=== PATIENT | male | born 1955 | race Caucasian/White ===

== ENCOUNTER → 2017-04-15 | Day surgery (SDC) | payer OTHER ==
[~2017-04-15] MED LIST: AVODART0.5 MG PO; BELLADONNA/OPIUM 60 MG SUPP PR ONE; CEFTRIAXONE SOD 1 GM/NS 50 ML 50 ML IV ONE; CIALIS5 MG PO; DEXAMETHASONE SOD PHOS INJ 4 MG/ML VIAL ONE; FENTANYL CITRATE/PF 100MCG/2 ML INJ ONE; GENTAMICIN 80MG/NS 100 ML 200 ML IV ONE; IOPAMIDOL 610MG/1ML 300 MG/ML VIAL IV ONE; LIDOCAINE HCL 2% LOCAL INJ 5 ML SDV VIAL INJ ONE; LUNESTA3 MG PO; MIDAZOLAM HCL 2 MG/2 ML VIAL ONE; ONDANSETRON HCL INJ 2 MG/ML VIAL ONE; PANTOPRAZOLE SO40 MG PO; PROPOFOL IV EMULSION 10 MG/ML 20 ML VIAL ONE; RAPAFLO8 MG PO; SEVOFLURANE INHAL SOLN 250 ML PEN BTL ONE; TESTOSTERO100 MG/1 M SQ
--- NOTE | 2017-06-07 07:20 | Operative Report ---
DATE OF PROCEDURE: April 15, 2017 PREOPERATIVE DIAGNOSES 1. Obstructive BPH. 2. Incomplete bladder emptying. POSTOPERATIVE DIAGNOSES 1. Obstructive BPH. 2. Incomplete bladder emptying. 3. Bladder stone. OPERATIONS PERFORMED 1. Cystourethroscopy with extraction of multiple bladder stones (separate procedure performed for the numerous bladder stones noted within the bladder). 2. Cystourethroscopy with bilateral ureteral catheterization and retrograde ureteropyelography (separate procedure performed for the incomplete bladder emptying to evaluate the upper tracts). 3. Interpretation of retrograde ureteropyelography. 4. Supervision of fluoroscopy. No radiologist present. 5. Cystourethroscopy with transurethral implantation of UroLift implants times 4 (separate procedure performed for the obstructive BPH). ANESTHESIA: General. COMPLICATIONS: None. CLINICAL SUMMARY: Navjot Fitzgerald is a 61-year-old man with obstructive BPH. He has incomplete bladder emptying. He also has had retrograde ejaculation with Rapaflo, which made him displeased with medications. The patient has had a history of elevated PSA which normalized. He is failing medical management and elected to proceed with surgical intervention as planned. He is aware of the risks of bleeding, infection, injury to adjacent structures, need for additional procedures, and elected to proceed. OPERATIVE PROCEDURE IN DETAIL: Informed consent was verified. Navjot Fitzgerald was properly identified, taken to the operating room, placed on the cystoscopy table in supine position. Anesthesia was uneventfully begun. The patient was then carefully gently re-positioned in the dorsal lithotomy position with all pressure points well padded. His genitalia were prepared and draped in the usual sterile fashion. The 22.5-Israeli cystoscope sheath with a visual obturator in place was atraumatically inserted into the patient's urethra. It was guided down the unremarkable urethra through the normal sphincteric region to the prostate bed, which was significant for visually obstructing and kissing lateral lobes. There was an elevated median bar causing obstruction of the bladder neck. No median lobe was identified. We entered the patient's bladder where there were countless small bladder stones. These bladder stones were all evacuated until no bladder stones remained. Panendoscopy of the bladder revealed grade 2 trabeculations, but no tumors and no diverticula. No more stones remained. An 8-Israeli catheter was used to cannulate each ureter and retrograde ureteropyelograms were performed. Interpretation of retrograde ureteropyelography: Contrast was instilled in retrograde fashion bilaterally. There was relative narrowing of the distal left ureter several centimeters proximal to the ureteral orifice with ureterectasis, but no hydronephrosis. Unobstructed drainage was observed fluoroscopically. There were no suspicious lesions. The cystoscope was withdrawn following drainage of the patient's bladder. We then introduced the 20-Israeli cystoscope sheath with the visual obturator. We then utilized 4 UroLift implants. They were implanted on either side anteriorly 1.5 cm distal to the bladder neck and at the level of the verumontanum. This resulted in a continuous anterior channel. The patient's bladder was drained. We carefully re-examined the prostate bed as we exited. A belladonna and opium suppository was placed, revealing a smooth prostate that is enlarged without any nodules. The patient was then uneventfully reversed from anesthesia and taken to the recovery room in stable condition. There were no complications to the procedure. He tolerated the procedure well. Explicit postop instructions were given, and we will follow the patient up in the office at which point in time we will perform uroflowmetry and bladder ultrasonography. Job#: [id number] CF cc:JJ WISE MD
== END | disposition home or self-care (01) ==
LOC: OR 06:38
PROVIDERS: ATTEND Urology
DX: N40.1 Benign prostatic hyperplasia with lower urinary tract symptoms (principal); N13.8 Other obstructive and reflux uropathy; R39.14 Feeling of incomplete bladder emptying; N32.89 Other specified disorders of bladder; N13.4 Hydroureter; N21.0 Calculus in bladder; R35.1 Nocturia; E29.1 Testicular hypofunction; G47.33 Obstructive sleep apnea (adult) (pediatric); Z01.810 Encounter for preprocedural cardiovascular examination; Z68.36 Body mass index [BMI] 36.0-36.9, adult; Z87.891 Personal history of nicotine dependence
CPT/HCPCS: 52005; C9740; 74420; 88300; 93005; J0696; J1100; J1580; J2001; J2250; J2405